=== PATIENT | female | born 1995 | race Hispanic/Latino ===

== ENCOUNTER 2018-05-26 22:50 | Inpatient (IN) | payer MEDICAID ==
[~2018-05-26] VITALS: Ht 147.3 cm; Wt 45.4 kg
[~2018-05-26 22:50] MED LIST: PREN1TAB80 PO
[2018-05-26] MEDS ORDERED: LACTATED RINGERS 1000ML 1,000 ML IV PRN (23:35)
[2018-05-26 23:45] LABS: APPEARANCE,URINE Clear (CLEAR); BILIRUBIN,URINE Negative (NEGATIVE); COLOR,URINE Yellow (YELLOW); GLUCOSE, URINE (UA) Negative (NEGATIVE); KETONES,URINE Negative (NEGATIVE); LEUKOCYTE ESTERASE ,URINE Moderate (NEGATIVE); NITRATE,URINE Negative (NEGATIVE); OCCULT BLOOD,URINE Negative (NEGATIVE); PH,URINE 6.5 (5.0-8.0); PROTEIN,URINE Negative (NEGATIVE)
[2018-05-26] MEDS ORDERED: BUTORPHANOL TARTRATE 2 MG/ML IVP ONE (23:45)
[2018-05-26 23:54] LABS: AMPHET/METH SCREEN,URINE NEGATIVE (NEGATIVE); BARBITURATE SCREEN, URINE NEGATIVE (NEGATIVE); BENZODIAZEPINES SCREEN,URINE NEGATIVE (NEGATIVE); CANNABINOID SCREEN,URINE NEGATIVE (NEGATIVE); COCAINE SCREEN,URINE POSITIVE (NEGATIVE); OPIATE SCREEN,URINE NEGATIVE (NEGATIVE); PHENCYCLIDINE SCREEN,URINE NEGATIVE (NEGATIVE)
[2018-05-27] VITALS (14 sets, daily range): BP systolic 99–139; BP diastolic 59–84
[2018-05-27 00:08] LABS: BACTERIA,URINE Moderate /HPF (None Seen); RBC,URINE 0-1 /HPF (0-1); SQUAMOUS EPITHELIAL CELL,UR Moderate /HPF (0-2)
[2018-05-27 00:09] LABS: HEMATOCRIT 37.3 % (36-48); MEAN CORPUSCULAR HEMOGLOBIN 30.1 pg (27.0-33.0); MEAN CORPUSCULAR HGB CONC 33.7 g/dL (32.0-36.0); MEAN CORPUSCULAR VOLUME 89.3 fL (80-100); PLATELET COUNT (AUTO) 169 K/uL (130-400); RED BLOOD CELL COUNT(AUTO) 4.18 MIL/uL (4.00-5.50); RED CELL DISTRIBUTION WIDTH 13.9 % (11.0-15.5); WHITE BLOOD COUNT (AUTO) 10.3 K/uL (4.8-10.8)
[2018-05-27] MEDS ORDERED: LACTATED RINGERS 1000ML 1,000 ML IV ONE (01:21)
[2018-05-27] MEDS ORDERED: OXYTOCIN 10 USP UNITS/ML ONE ×2 (01:21→08:08)
[2018-05-27] MEDS ORDERED: LIDOCAINE HCL MPF 1% 5ML VIAL ONE (01:22)
[2018-05-27] MEDS ORDERED: BUTORPHANOL TARTRATE 1 MG/ML IVP ONE (01:45)
[2018-05-27] MEDS ORDERED: BUTORPHANOL TARTRATE 2 MG/ML ONE (01:46)
[2018-05-27] MEDS ORDERED: DIPH,PERTUSS(ACELL),TET VAC/PF 0.5 ML VIAL IM PRN (04:00)
[2018-05-27] MEDS ORDERED: OXYTOCIN-LR 20 UNITS/1000 ML 1,000 ML IV SCH (04:00)
[2018-05-27] MEDS ORDERED: ACETAMINOPHEN 325 MG TAB PO PRN (04:00)
[2018-05-27] MEDS ORDERED: WITCH HAZEL 1 PAD TP PRN (04:00)
[2018-05-27] MEDS ORDERED: HYDROCODONE/ACETAMINOPHEN 5/325 MG TAB PO PRN (04:00)
[2018-05-27] MEDS ORDERED: LANOLIN 30GM OINTMENT TP PRN (04:00)
[2018-05-27] MEDS ORDERED: MEASLES/MUMPS/RUBELLA VACCINE, LIVE 0.5 ML/VIAL SQ PRN (04:00)
[2018-05-27] MEDS ORDERED: BENZOCAINE/LANOLIN/ALOE VERA 60 ML AEROSOL TP PRN (04:00)
[2018-05-27] MEDS ORDERED: ACETAMINOPHEN-CODEINE 300/30MG TAB PO PRN (04:00)
[2018-05-27] MEDS: IBUPROFEN 600 MG TABLET PO PRN ×2 (04:55→16:11)
[2018-05-27] MEDS ORDERED: DOCUSATE SODIUM 100 MG CAP PO SCH (09:00)
[2018-05-27 21:13] LABS: HEMATOCRIT 35.3 % (36-48); MEAN CORPUSCULAR HEMOGLOBIN 29.1 pg (27.0-33.0); MEAN CORPUSCULAR HGB CONC 32.6 g/dL (32.0-36.0); PLATELET COUNT (AUTO) 146 K/uL (130-400); RED BLOOD CELL COUNT(AUTO) 3.97 MIL/uL (4.00-5.50); RED CELL DISTRIBUTION WIDTH 14.3 % (11.0-15.5); WHITE BLOOD COUNT (AUTO) 11.4 K/uL (4.8-10.8)
[2018-05-28 08:24] LABS: HEPATITIS Bs ANTIGEN SCREEN P Negative (Negative)
== END 2018-05-27 21:35 | disposition left against medical advice (07) | DRG 560 ==
LOC: EDH 22:50 → OBSVTOIN 22:51 → LDH 22:51 → WSH 05-27 03:15
PROVIDERS: ADMIT Obstetrics & Gynecology; ATTEND Obstetrics & Gynecology
PROC: 10E0XZZ Delivery of Products of Conception, External Approach (ICD-10-PCS; principal; 2018-05-26)
PROC: 3E0234Z Introduction of Serum, Toxoid and Vaccine into Muscle, Percutaneous Approach (ICD-10-PCS; 2018-05-26)
PROC: 3E0134Z Introduction of Serum, Toxoid and Vaccine into Subcutaneous Tissue, Percutaneous Approach (ICD-10-PCS; 2018-05-26)
DX: O80 Encounter for full-term uncomplicated delivery (principal); Z23 Encounter for immunization; Z37.0 Single live birth; Z3A.36 36 weeks gestation of pregnancy
CPT/HCPCS: 36415; 80305; 81001; 85027; 86592; 86850; 86900; 86901; 87340; 90707; 90715; G0008; J0595; J2590; J3490; J7120; Q2038

== ENCOUNTER 2020-03-29 10:42 | Emergency (ER) | payer MEDICAID, OTHER ==
[2020-03-29] MEDS ORDERED: ACETAMINOPHEN 325 MG TAB ONE (11:02)
[2020-03-29 11:28] LABS: APPEARANCE,URINE Cloudy (CLEAR); BILIRUBIN,URINE Negative (NEGATIVE); COLOR,URINE Yellow (YELLOW); GLUCOSE, URINE (UA) Negative (NEGATIVE); KETONES,URINE Negative (NEGATIVE); LEUKOCYTE ESTERASE ,URINE Small (NEGATIVE); NITRATE,URINE Positive (NEGATIVE); OCCULT BLOOD,URINE Negative (NEGATIVE); PROTEIN,URINE Negative (NEGATIVE)
[2020-03-29 11:30] LABS: HCG,QUAL RESULT POSITIVE (NEGATIVE)
[2020-03-29 11:40] LABS: BACTERIA,URINE Many /HPF (None Seen); RBC,URINE 0-1 /HPF (0-1)
[2020-03-29 12:06] LABS: BASOPHILS % (AUTO) 0.3 % (0.0-5.0); EOSINOPHILS % (AUTO) 1.9 % (0.0-8.0); HEMATOCRIT 38.6 % (36-48); LYMPHOCYTES % (AUTO) 22.4 % (21.0-51.0); MEAN CORPUSCULAR HEMOGLOBIN 28.1 pg (27.0-33.0); MEAN CORPUSCULAR HGB CONC 32.9 g/dL (32.0-36.0); MEAN CORPUSCULAR VOLUME 85.4 fL (79-99); MONOCYTES % (AUTO) 8.6 % (3.0-13.0); NEUTROPHILS % (AUTO) 66.5 % (40.0-77.0); PLATELET COUNT (AUTO) 258 K/uL (130-400); RED BLOOD CELL COUNT(AUTO) 4.52 MIL/uL (4.00-5.50); RED CELL DISTRIBUTION WIDTH 12.7 % (11.0-15.5); WHITE BLOOD COUNT (AUTO) 6.9 K/uL (4.8-10.8)
[2020-03-29 12:15] LABS: CREATININE 0.5 mg/dL (0.5-1.5); POTASSIUM 3.5 mmol/L (3.5-5.1)
[2020-03-29] MEDS ORDERED: CEFTRIAXONE SODIUM 1 GM ONE (12:15)
[2020-03-29 12:20] LABS: ALBUMIN 3.7 g/dL (3.5-5.0); BILIRUBIN,TOTAL 0.2 mg/dL (0.2-1.0); TOTAL PROTEIN, SERUM 7.7 g/dL (6.0-8.3)
== END 2020-03-29 14:26 | disposition home or self-care (01) ==
LOC: EDH 10:42
DX: O23.41 Unspecified infection of urinary tract in pregnancy, first trimester (principal); O99.511 Diseases of the respiratory system complicating pregnancy, first trimester; Z3A.08 8 weeks gestation of pregnancy
CPT/HCPCS: 36415; 76705; 76801; 80053; 81001; 81025; 84702; 85025; 87077; 87088; 87186; 96374; 99285; J0696

== ENCOUNTER 2020-03-29 19:53 | Emergency (ER) | payer OTHER ==
[2020-03-29] MEDS ORDERED: ACETAMINOPHEN 325 MG TAB ONE (21:09)
== END 2020-03-29 21:17 | disposition home or self-care (01) ==
LOC: EDH 19:53
DX: O23.12 Infections of bladder in pregnancy, second trimester (principal); O99.511 Diseases of the respiratory system complicating pregnancy, first trimester; J45.909 Unspecified asthma, uncomplicated; Z3A.08 8 weeks gestation of pregnancy

== ENCOUNTER 2020-08-12 10:04 | Emergency (ER) | payer OTHER | END 2020-08-12 10:49 | LOC: EDH 10:04 | DX: Z02.89 Encounter for other administrative examinations (principal); O26.892 Other specified pregnancy related conditions, second trimester; O99.512 Diseases of the respiratory system complicating pregnancy, second trimester; J45.909 Unspecified asthma, uncomplicated; Z79.899 Other long term (current) drug therapy; Z3A.26 26 weeks gestation of pregnancy ==

== ENCOUNTER 2023-01-07 18:53 | Emergency (ER) | payer OTHER ==
[~2023-01-07] VITALS: Ht 149.9 cm; Wt 10.4 kg
[2023-01-07 19:42] LABS: APPEARANCE,URINE CLOUDY (CLEAR); BILIRUBIN,URINE NEGATIVE (NEGATIVE); COLOR,URINE YELLOW (YELLOW); GLUCOSE, URINE (UA) NEGATIVE (NEGATIVE); KETONES,URINE NEGATIVE (NEGATIVE); LEUKOCYTE ESTERASE ,URINE NEGATIVE Leu/uL (NEGATIVE); NITRATE,URINE NEGATIVE (NEGATIVE); OCCULT BLOOD,URINE NEGATIVE (NEGATIVE); PROTEIN,URINE NEGATIVE (NEGATIVE); UROBILINOGEN,URINE 0.2 mg/dL (0.2-1.0)
[2023-01-07 19:57] LABS: BACTERIA,URINE RARE /HPF (None Seen); MUCUS,URINE MOD LPF (None Seen); RBC,URINE 0-1 /HPF (0-1); SQUAMOUS EPITHELIAL CELL,UR MOD /HPF (0-2); YEAST,URINE BUDDING FEW /HPF (None Seen)
[2023-01-07] MEDS ORDERED: KETOROLAC 60 MG VIAL (30MG/ML) IM ONE (20:00)
[2023-01-07] MEDS ORDERED: ORPHENADRINE CITRATE 30 MG/ML ML IM ONE (20:00)
[2023-01-07 21:36] VITALS: BP 122/71
[2023-01-07] MEDS ORDERED: CYCL10TA16 PO (21:37)
[2023-01-07] MEDS ORDERED: IBUP-2070 PO (21:37)
== END 2023-01-07 21:52 | disposition home or self-care (01) ==
LOC: EDH 18:53
DX: M54.50 Low back pain, unspecified (principal); J45.909 Unspecified asthma, uncomplicated
CPT/HCPCS: 99284; 81001; 81025; 72100; 96372 ×2; J1885

== ENCOUNTER 2024-10-30 14:29 | Emergency (ER) | payer OTHER, MEDICAID ==
[~2024-10-30] VITALS: Ht 149.9 cm; Wt 63.5 kg
[~2024-10-30 14:29] MED LIST changes: +CYCL10TA16 PO; +IBUP-2070 PO
--- NOTE | 2024-10-30 14:50 | ERN ---
ED Note History of Present Illness Stated Complaint: MULTIPLE COMPLAINTS Chief Complaint: Cough Time Seen by MD: 14:32 Time Seen by Midlevel: 14:34 Dictation: Ms. Sahu is a 28-year-old female with history of asthma who is 13 weeks who presented to the emergency department this afternoon for evaluation of cough. She reports two days of frequent urination, cough, rhinorrhea, congestion, fever, and headache. She states her children have been ill with similar symptoms. She states she took Tylenol yesterday. She denies having shortness of breath, chest pain, palpitations, edema, abdominal pain, nausea, vomiting, diarrhea, dysuria, vaginal bleeding/discharge, or dizziness. Allergies: Coded Allergies: No Known Drug Allergies (Verified Allergy, 08/19/13) Home Meds Active Scripts Cephalexin (Cephalexin) 500 Mg Tablet, 1 TAB PO BID for UTI for 10 Days, #20 TAB 0 Refills Prov:LISA WILDE FIGURINE MAKER 10/30/24 Ibuprofen (Ibuprofen) 600 Mg Tablet, 600 MG PO Q6H PRN for PAIN, #40 TAB 0 Refills Prov:KANE RODRIGUEZ MD 01/07/23 Cyclobenzaprine HCl (Flexeril) 10 Mg Tab, 10 MG PO BID for muscle sstiffness, #14 TAB 0 Refills Prov:KANE RODRIGUEZ MD 01/07/23 Reported Medications Vits W-Ca,Fe,FA(<1Mg) ( Vitamins) 1 Each Tablet, 1 EACH PO DAILY, TAB 06/14/15 Past Medical History Past Medical History: Asthma Surgical History: None PSYCH History: no pertinent psych hx Social History: Negative, Lives with family LMP: Jul 29, 2024 : 5 Para: 4 Aborts: 0 RN Note Reviewed/Agreed w/PFSH: Yes Review of System Dictation REVIEW OF SYSTEMS: CONSTITUTIONAL: Patient denies sweats and weight changes. Reports fatigue, general weakness, fever, and chills EYES: Patient denies any visual symptoms. EARS, NOSE, AND THROAT: No difficulties with hearing. Reports runny nose, sore throat, and congestion CARDIOVASCULAR: Patient denies chest pains, palpitations, orthopnea and paroxysmal nocturnal dyspnea. RESPIRATORY: No dyspnea on exertion, no wheezing reports cough GI: No nausea, vomiting, diarrhea, constipation, abdominal pain, hematochezia or melena. : No urinary hesitancy or dribbling. No nocturia, No abnormal urethral discharge. No vaginal bleeding or discharge. Reports frequent urination MUSCULOSKELETAL: No myalgias or arthralgias. NEUROLOGIC: No chronic headaches, no seizures. Patient denies numbness, tingling or weakness. Reports headache PSYCHIATRIC: Patient denies problems with mood disturbance. No problems with anxiety. ENDOCRINE: No excessive urination or excessive thirst. DERMATOLOGIC: Patient denies any rashes or skin changes. Initial Vital Sign VS Vital Signs Date Time Temp Pulse Resp B/P (MAP) Pulse Ox O2 Delivery O2 Flow Rate FiO2 10/30/24 14:32 99.3 122 18 122/79 99 Room Air 0 10/30/24 14:37 21 Physical Exam Dictation Vital signs: Reviewed. Afebrile Constitutional: No acute distress. Non-toxic appearing. Head/Face: Normocephalic, atraumatic. Eyes: Periorbital areas with no swelling, redness, or edema. Lids and lashes are normal. Conjunctival injection is absent. Sclera anicteric. Pupils equal, round, reactive to light. ENT: Pinnas intact and no signs of trauma or erythema. Ear canals clear and no discharge. TMs no erythema. No nasal discharge or bleeding noted. Oropharynx with no exudate, redness, swelling, masses, exudates, or evidence of obstruction. Uvula midline. Mucous membranes moist. Neck: Trachea midline, no masses palpated, and no cervical lymphadenopathy. No swelling. Supple, full range of motion. Chest/Axilla: No tenderness, no crepitus, no paradoxical movement, no retractions. Cardiovascular: Regular rate, regular rhythm, no murmur, no gallops. Symmetric pulses. No peripheral edema. Tachycardic; rate 110. Respiratory: Respirations even and unlabored. Lung sounds clear; no wheezes, rales or rhonchi. Room air spo2 99% Gastrointestinal: Inspection is normal. No distention is appreciated. Bowel sounds are normal. No mass or organomegaly . There is no tenderness. No rebound. No rigidity. No voluntary or involuntary guarding. No Lion's sign. : Negative CVA tenderness bilaterally. Neurological: Normal speech, gross motor function intact, gross sensory function intact. No focal weakness/Paresthesia. Musculoskeletal/Extremities: All extremities have full range of motion, no pain or tenderness on palpation. Symmetric pulses. Integumentary: Intact. Skin is normal color, warm and dry. Cap refill less than 3 seconds. Results (Laboratory/Radiology) Laboratory/Radiology Laboratory Tests Test 10/30/24 14:41 10/30/24 17:15 Influenza Type A Antigen Negative For Type A Influenza Type B Antigen Negative For Type B SARS-CoV-2, RNA, NAAT NEGATIVE SARS CoV-2 Group A Streptococcus Rapid negative (NEGATIVE) Urine Color YELLOW (YELLOW) Urine Appearance CLOUDY (CLEAR) H Urine pH 6.5 (5.0-8.0) Urine Specific [place] 1.026 (1.001-1.031) Urine Protein 20 mg/dL (NEGATIVE) H Urine Glucose (UA) NEGATIVE mg/dL (NEGATIVE) Urine Ketones NEGATIVE mg/dL (NEGATIVE) Urine Occult Blood NEGATIVE (NEGATIVE) Urine Nitrate NEGATIVE (NEGATIVE) Urine Bilirubin NEGATIVE mg/dL (NEGATIVE) Urine Urobilinogen 2.0 mg/dL (0.2-1.0) H Urine Leukocyte Esterase 75 Lindsey/uL (NEGATIVE) H Urine RBC 2-5 /HPF (0-1) H Urine WBC 2-5 /HPF (0-1) H Urine Squamous Epithelial Cells MANY /HPF (0-2) Urine Bacteria MOD /HPF (None Seen) Labs Reviewed?: Yes ED Course ED Course Orders Procedure Category Date Status Time Covid Rna Naat LAB 10/30/24 Complete 14:39 Rapid (Group A Strep) LAB 10/30/24 Complete 14:39 Influenza Type A & B, LAB 10/30/24 Complete Rapid 14:39 Urinalysis Profile LAB 10/30/24 Complete 14:42 Acetaminophen 325 Tab PHA 10/30/24 Complete (Tylenol 325mg Tab 15:00 Culture Urine CLAUDETTE 10/30/24 In Process 17:49 Ceftriaxone 1g Vial PHA 10/30/24 Complete (Rocephine 1g Inj) 18:00 Current Medications Medications (Trade) Dose Ordered Sig/Luis Route PRN Reason Start Time Stop Time Status Last Admin Dose Admin Acetaminophen (TYLenol 325MG TAB) 650 mg ONCE ONCE PO 10/30/24 15:00 10/30/24 15:01 DC 10/30/24 15:31 Ceftriaxone Sodium (ROCEphine 1G INJ) 1 gm ONCE IM 10/30/24 18:00 10/30/24 18:53 DC 10/30/24 18:50 Vital Signs Date Time Temp Pulse Resp B/P (MAP) Pulse Ox O2 Delivery O2 Flow Rate FiO2 10/30/24 18:51 98.8 98 20 122/74 100 Room Air* 0 21 10/30/24 16:37 98.8 100 20 124/74 100 Room Air* 0 21 10/30/24 15:31 99.1 10/30/24 14:37 99.1 119 20 122/79 100 Room Air* 0 10/30/24 14:32 99.3 122 18 122/79 99 Room Air 0 Uneventful ED course. Initial heart rate 122; repeat at 100. SpO2 remains 99- 100%. Patient is afebrile and normotensive. She received dose Tylenol 650 x 1 laboratory findings as noted below. Influenza A/B, COVID, and strep are all negative. UA cloudy;+ protein, and leukocyte esterase. Culture is pending. She received a dose Rocephin 1 g IM x1. Findings were discussed with patient and all questions were answered. Medical Decision Making MDM MDM: Differential diagnosis: Influenza, COVID, strep, UTI Rationale: Tests considered and ordered secondary to shared decision making inc lude: Previous outside records reviewed: Old ER visits. Risk of complication and/or morbidity or mortality of patient management: None Medications-Per medication reconciliation Need for hospitalization: Patient does not meet criteria for hospitalization. Need for emergency major/minor surgery: No There are no social concerns with this patient. Prescription drug management: Cephalexin, OTC Tylenol Prescriptions will include symptomatic care Patient's prior external medical records from other ER visits were reviewed by me as indicated. Prior testing and results from previous visits were reviewed. Prior tests were taken into account with medical decision making and resource utilization, independent historian/historians were used to obtain complete medical history. I independently interpreted the test that were performed, results were reviewed by me and considered findings on radiology if ordered. Medical management and examination interpretation discussions were had by me with other qualified healthcare professionals as indicated for the patient's care. DX & DISP Disposition: Discharge Departure Impression: Primary Impression: UTI (urinary tract infection) Additional Impression: Viral upper respiratory tract infection with cough Condition: Stable Scripts Cephalexin (Cephalexin) 500 Mg Tablet 1 TAB PO BID for UTI for 10 Days, #20 TAB 0 Refills Prov: LISA WILDE FIGURINE MAKER 10/30/24 Additional Instructions: Rest. Isolate at home until symptoms are resolving and you have been fever free times 24 hours. May take [id number] Tylenol as needed for discomfort or fever. Continue antibiotic with cephalexin 500 mg twice daily x7 days. Follow up with your OB and/or PCP in the next week. Return to the emergency department for any worsening of symptoms or concerns. Referrals: GRUPO JIMENE[facility] CNM (PCP) Time of Disposition: 18:05 ATTESTATION BY PHYSICIAN I PERFORMED THE SUBSTANTIVE PORTION OF THE VISIT. I HAVE REVIEWED AND PERSONALLY MADE AND APPROVED THE MANAGEMENT PLAN THAT IS DOCUMENTED IN THE NOTE BY MYSELF FOR THE A PP. I ACKNOWLEDGED FOR RESPONSIBILITY FOR THE PATIENT'S MANAGEMENT PLAN. LISA WILDE NP Oct 30, 2024 14:50 TAIWO BRAGA MD Oct 31, 2024 07:49
[2024-10-30 15:23] LABS: RAPID GROUP A STREP negative (NEGATIVE)
[2024-10-30 15:25] LABS: SARS-CoV-2, RNA, NAAT NEGATIVE SARS CoV-2 (NEGATIVE)
[2024-10-30] MEDS: acetaMINOPHEN 325 MG TAB PO ONE (15:31)
[2024-10-30 15:33] LABS: INFLUENZA TYPE A Negative For Type A (NEGATIVE); INFLUENZA TYPE B Negative For Type B (NEGATIVE)
[2024-10-30 16:37] VITALS: TEMP 98.7
[2024-10-30 17:46] LABS: APPEARANCE,URINE CLOUDY (CLEAR); BILIRUBIN,URINE NEGATIVE (NEGATIVE); COLOR,URINE YELLOW (YELLOW); GLUCOSE, URINE (UA) NEGATIVE (NEGATIVE); KETONES,URINE NEGATIVE (NEGATIVE); LEUKOCYTE ESTERASE ,URINE 75 Leu/uL (NEGATIVE); NITRATE,URINE NEGATIVE (NEGATIVE); OCCULT BLOOD,URINE NEGATIVE (NEGATIVE); PH,URINE 6.5 (5.0-8.0); PROTEIN,URINE 20 mg/dL (NEGATIVE)
[2024-10-30 17:48] LABS: ADD UA MICROSCOPIC YES
[2024-10-30 17:58] LABS: BACTERIA,URINE MOD /HPF (None Seen); MUCUS,URINE MANY LPF (None Seen); SQUAMOUS EPITHELIAL CELL,UR MANY /HPF (0-2)
[2024-10-30] MEDS ORDERED: CEPH500T PO (18:05)
[2024-10-30] MEDS: cefTRIAXone 1G VIAL IM SCH (18:50)
[2024-10-30 18:51] VITALS: BP 122/74; PULSE 98; RESP 20; TEMP 98.7; O2SAT 100
== END 2024-10-30 18:53 | disposition home or self-care (01) ==
LOC: EDH 14:29
DX: O98.511 Other viral diseases complicating pregnancy, first trimester (principal); O99.511 Diseases of the respiratory system complicating pregnancy, first trimester; J06.9 Acute upper respiratory infection, unspecified; B97.89 Other viral agents as the cause of diseases classified elsewhere; O23.41 Unspecified infection of urinary tract in pregnancy, first trimester; N39.0 Urinary tract infection, site not specified; J45.909 Unspecified asthma, uncomplicated; Z3A.13 13 weeks gestation of pregnancy; Z20.822 Contact with and (suspected) exposure to COVID-19
CPT/HCPCS: 99283; 87635; 87086; 87880; 87804 ×2; 81001; 96372; J0696

== ENCOUNTER 2025-08-20 16:02 | Emergency (ER) | payer OTHER, MEDICAID ==
[~2025-08-20] VITALS: Ht 149.9 cm; Wt 60.8 kg
[~2025-08-20 16:02] MED LIST changes: +CEPH500T PO; +IBUP-1492 PO; -IBUP-2070 PO
--- NOTE | 2025-08-20 17:14 | ERN ---
ED Note History of Present Illness Stated Complaint: FINGER INJURY Chief Complaint: Finger Injury Time Seen by MD: 16:04 Time Seen by Midlevel: 16:05 Dictation: Ms. Sahu is a 29-year-old female with no reported chronic health issues who presented to the emergency department this afternoon for evaluation of finger injury. States that two days ago she caught her left 4th finger in a car door. She states that the finger has been painful and she has noted that the nail bed is black in color. She states that she was unable to sleep last night due to discomfort/throbbing pain. Unknown last tetanus date. She has full range of motion to all digits of the left hand. She has good color, warmth, movement, and sensation. Capillary refill is brisk. He denies fever, chills, or other concerns. Allergies: Coded Allergies: No Known Drug Allergies (Verified Allergy, 08/19/13) Home Meds Active Scripts Cephalexin (Cephalexin) 500 Mg Tablet, 1 TAB PO BID for UTI for 10 Days, #20 TAB 0 Refills Prov:LISA WILDE 10/30/24 Ibuprofen (Ibuprofen) 600 Mg Tablet, 600 MG PO Q6H PRN for PAIN, #40 TAB 0 Refills Prov:KANE RODRIGUEZ MD 01/07/23 Cyclobenzaprine HCl (Flexeril) 10 Mg Tab, 10 MG PO BID for muscle sstiffness, #14 TAB 0 Refills Prov:KANE RODRIGUEZ MD 01/07/23 Reported Medications Vits W-Ca,Fe,FA(<1Mg) ( Vitamins) 1 Each Tablet, 1 EACH PO DAILY, TAB 06/14/15 Past Medical History Past Medical History: No Pertinent History Surgical History: None PSYCH History: no pertinent psych hx Social History: Negative, Lives with family : 5 Para: 4 Aborts: 0 Review of System Dictation REVIEW OF SYSTEMS: CONSTITUTIONAL: Patient denies fevers, chills, sweats and weight changes. EYES: Patient denies any visual symptoms. EARS, NOSE, AND THROAT: No difficulties with hearing. No symptoms of rhinitis or sore throat. CARDIOVASCULAR: Patient denies chest pains, palpitations, orthopnea and paroxysmal nocturnal dyspnea. RESPIRATORY: No dyspnea on exertion, no wheezing or cough. GI: No nausea, vomiting, diarrhea, constipation, abdominal pain, hematochezia or melena. : No urinary hesitancy or dribbling. No nocturia or urinary frequency. No abnormal urethral discharge. MUSCULOSKELETAL: Reports pain to left 4th finger. States she caught it in a two weeks ago. NEUROLOGIC: No chronic headaches, no seizures. Patient denies numbness, tingling or weakness. PSYCHIATRIC: Patient denies problems with mood disturbance. No problems with anxiety. ENDOCRINE: No excessive urination or excessive thirst. DERMATOLOGIC: Patient denies any rashes or skin changes. Reports left 4th nail painful with black discoloration following crush injury. Initial Vital Sign VS Vital Signs Date Time Temp Pulse Resp B/P (MAP) Pulse Ox O2 Delivery O2 Flow Rate FiO2 08/20/25 16:11 97.7 81 16 120/78 99 Room Air 0 08/20/25 16:25 21 Physical Exam Dictation Vital signs: Reviewed. Constitutional: No acute distress. Non-toxic appearing. Head/Face: Normocephalic, atraumatic. Eyes: Periorbital areas with no swelling, redness, or edema. Lids and lashes are normal. Conjunctival injection is absent. Sclera anicteric. Pupils equal, round, reactive to light. ENT: Pinnas intact and no signs of trauma or erythema. Ear canals clear and no discharge. TMs no erythema. No nasal discharge or bleeding noted. Oropharynx with no exudate, redness, swelling, masses, exudates, or evidence of obstructio n. Uvula midline. Mucous membranes moist. Neck: Trachea midline, no masses palpated, and no cervical lymphadenopathy. No swelling. Supple, full range of motion. Chest/Axilla: No tenderness, no crepitus, no paradoxical movement, no retractions. Cardiovascular: Regular rate, regular rhythm, no murmur, no gallops. Symmetric pulses. No peripheral edema. Respiratory: Respirations even and unlabored. Lung sounds clear; no wheezes, rales or rhonchi. Gastrointestinal: Inspection is normal. No distention is appreciated. Bowel sounds are normal. No mass or organomegaly . There is no tenderness. No rebound. No rigidity. No voluntary or involuntary guarding. No Lion's sign. Neurological: Normal speech, gross motor function intact, gross sensory function intact. No focal weakness/Paresthesia. Musculoskeletal/Extremities: Range of motion intact to all fingers of left hand. There is pain to the distal end of the left 4th finger. She has subungual hematoma of the left 4th nail. She has brisk capillary refill. She has good color, warmth, movement, and so sensation left 4th finger. Integumentary: Intact. Skin is normal color, warm and dry. Cap refill less than 3 seconds. Results (Laboratory/Radiology) X-RAY Comment: X-ray fingers left hand show no fracture as interpreted by myself/Dr. Rosibel Kaufman Radiologist's interpretation to follow. ED Course ED Course Patient evaluated for painful subungual hematoma and via the entire nail plate of the left ring finger following trauma. She was treated with nail trephination using electrocautery, resulting in evacuation of a moderate to lar ge amount of blood with immediate pain relief. The digit was cleansed with soap and water, tropical triple antibiotic ointment was applied, and a dressing was placed. Distal neurovascular status intact with brisk capillary refill. Patient received [place] x1 for pain control and tetanus immunization. X-ray of the digit Patient tolerated the procedure well without complications. There was discharged in stable condition with negative x-ray, improve pain after nail transportation and dose [place] x1. Appropriate wound care and return precautions were reviewed. Medical Decision Making MDM MDM: Differential diagnosis: Subungual hematoma, nail bed contusion, distal phalanx fracture, nail bed laceration, crush injury to the digit Rationale: Tests considered and ordered secondary to shared decision making include: X-ray Previous outside records reviewed: Old ER visits. Risk of complication and/or morbidity or mortality of patient management: None Medications-Per medication reconciliation Need for hospitalization: Patient does not meet criteria for hospitalization. Need for emergency major/minor surgery: No There are no social concerns with this patient. Prescription drug management: [id number]-[id number] Tylenol or ibuprofen Prescriptions will include symptomatic care Patient's prior external medical records from other ER visits were reviewed by me as indicated. Prior testing and results from previous visits were reviewed. Prior tests were taken into account with medical decision making and resource utilization, independent historian/historians were used to obtain complete medical history. I independently interpreted the test that were performed, results were reviewed by me and considered findings on radiology if ordered. Medical management and examination interpretation discussions were had by me with other qualified healthcare professionals as indicated for the patient's care. Procedure Procedure Dictation: Procedure: Nail trephination for subungual hematoma Indication: Painful sublingual hematoma of the left ring finger (4th digit) following trauma. Description: Examination revealed a black and nail consistent with subungual hematoma involving the 4th ring finger it after discussion of risks, benefits, and alternatives, nail trephination was performed using a thermal electrocautery pen. A small hole was created in the nail plate, resulting in a release of moderate to large amount of dark blood. The patient reported immediate relief Of pain. Postprocedure care: The digit was cleansed with soap and water, followed by application of triple antibiotic ointment and a clean dressing. Neurovascular status: Capillary refill to stools of the nail was brisk, sensation intact, no active bleeding after dressing was applied. DX & DISP Disposition: Discharge Departure Impression: Primary Impression: Subungual hematoma of finger of left hand Additional Impression: Crushing injury of finger of left hand Condition: Stable Additional Instructions: Your diagnosis is subungual hematoma of the left ring finger. The you had blood trapped under the fingernail it was drained using a small hole in the nail. This relieved pressure and pain. The finger was cleaned and dressed. An x-ray confirmed no broken bone. You will have continued drainage for the next 24-48 hours that is normal. The nail may: Stay dark, become loose, fall off over time and this is normal. A new nail will grow back over 3-6 months. Keep the finger clean and dry. Change the bandage daily or if wet. Wash gently with soap and water. Apply a small amount of antibiotic ointment. Do not soak the finger, no baths, hot tubs, or pools) for 48 hours do not worse tissues. You may take [id number] Tylenol or ibuprofen as needed for discomfort. Elevate the hand to reduce swelling. Avoid pressure or trauma to the nail. Use the finger as tolerated. Avoid heavy use her impact until pain improves. Return to the emergency department for increasing pain/swelling/redness, pus/foul-smelling drainage, fever/chills, numbness/color change of the finger, or pain not improving after drainage. Follow up with your primary care provider his pain persist with a nail becomes loose. Return if symptoms worsened or signs of infection develop. No antibiotics are needed at this time. X-ray was normal. Referrals: SELF,REFERRAL (PCP) Time of Disposition: 19:50 ATTESTATION BY PHYSICIAN I PERFORMED THE SUBSTANTIVE PORTION OF THE VISIT. I HAVE REVIEWED AND PERSONALLY MADE AND APPROVED THE MANAGEMENT PLAN THAT IS DOCUMENTED IN THE NOTE BY MYSELF FOR THE A PP. LISA WILDE Aug 20, 2025 17:14 TAIWO BRAGA MD Aug 24, 2025 07:52
[2025-08-20] MEDS: BACITRACIN 1 EACH PACKET TP ONE ×2 (18:08→18:11)
[2025-08-20] MEDS: HYDROcodone/APAP 5/325 1 TAB TABLET PO SCH (18:10)
[2025-08-20] MEDS: NEOMY SULF/BACITRA/POLYMYXIN B 1 EACH PACKET TP SCH (18:14)
[2025-08-20 18:28] VITALS: BP 120/78; PULSE 81; RESP 16; TEMP 97.7; O2SAT 99
--- NOTE | 2025-08-20 19:50 | HMCIMG ---
EXAM: CR right Finger, 3 View. CLINICAL HISTORY: crush injury COMPARISON: None provided. FINDINGS: BONES: No acute fracture or aggressive appearing osseous lesion. JOINTS: No dislocation. The joint spaces are normal. SOFT TISSUES: The soft tissues are unremarkable. IMPRESSION: No acute osseous abnormality. No acute fracture or dislocation. /[place]
== END 2025-08-20 20:26 | disposition home or self-care (01) ==
LOC: EDH 16:02
DX: S60.142A Contusion of left ring finger with damage to nail, initial encounter (principal); S67.195A Crushing injury of left ring finger, initial encounter; W23.0XXA Caught, crushed, jammed, or pinched between moving objects, initial encounter; Y93.89 Activity, other specified; Y92.89 Other specified places as the place of occurrence of the external cause; Y99.8 Other external cause status
CPT/HCPCS: 11740; 73140; 90471; 90714; 99284